=== PATIENT | male | born 2000 | race Two or more races ===

== ENCOUNTER 2019-01-01 23:53 | Emergency (ER) | payer OTHER ==
[~2019-01-01] VITALS: Ht 175.3 cm; Wt 111.1 kg
[~2019-01-01 23:53] MED LIST: AMPDEX15CR PO; CEPH500 PO; MELA3; SERT25; Ultram50 MG PO; Vyvanse50 MG PO; Zofran Odt4 MG SL
[2019-01-02] MEDS ORDERED: KETO10 PO (02:10)
== END 2019-01-02 02:25 | disposition home or self-care (01) ==
LOC: ER 23:53
DX: S51.811A Laceration without foreign body of right forearm, initial encounter (principal); M21.331 Wrist drop, right wrist; W25.XXXA Contact with sharp glass, initial encounter; Z87.891 Personal history of nicotine dependence
CPT/HCPCS: 12001; 90471; 90714; 99282-25

== ENCOUNTER 2020-01-04 17:53 | Emergency (ER) | payer OTHER ==
[~2020-01-04] VITALS: Ht 175.3 cm; Wt 111.1 kg
[~2020-01-04 17:53] MED LIST changes: +KETO10 PO
== END 2020-01-04 19:22 | disposition other institution (70) ==
LOC: ER 17:53
DX: S90.122A Contusion of left lesser toe(s) without damage to nail, initial encounter (principal); Z87.891 Personal history of nicotine dependence; W16.012A Fall into swimming pool striking water surface causing other injury, initial encounter
CPT/HCPCS: 73660; 99283-25